=== PATIENT | male | born 1950 | race Caucasian/White ===

== ENCOUNTER 2021-03-30 03:30 | Inpatient (IN) | payer OTHER ==
[~2021-03-30] VITALS: Ht 175.3 cm; Wt 77.1 kg
[2021-03-30] MEDS ORDERED: TRICOR48 MG (03:43)
[2021-04-02] MEDS ORDERED: CIPRO500 MG PO (09:20)
[2021-04-02] MEDS ORDERED: FLAGYL500MG PO (09:20)
== END 2021-04-02 11:08 | disposition home or self-care (01) | DRG 392 ==
LOC: ER 03:30 → SURH 13:18
PROVIDERS: ADMIT Internal Medicine; ATTEND Internal Medicine
DX: K57.32 Diverticulitis of large intestine without perforation or abscess without bleeding (principal); E78.49 Other hyperlipidemia

== ENCOUNTER 2021-05-10 12:44 | Emergency (ER) | payer OTHER ==
[~2021-05-10] VITALS: Ht 175.3 cm; Wt 76.2 kg
[~2021-05-10 12:44] MED LIST: CIPRO500 MG PO; FLAGYL500MG PO; TRICOR48 MG
[2021-05-10] MEDS ORDERED: NORFLEX100MG PO (16:00)
[2021-05-10] MEDS ORDERED: KETO10TA2 PO (16:00)
== END 2021-05-10 16:09 | disposition home or self-care (01) ==
LOC: ER 12:44
DX: S16.1XXA Strain of muscle, fascia and tendon at neck level, initial encounter (principal); S00.03XA Contusion of scalp, initial encounter; M54.6 Pain in thoracic spine; M54.2 Cervicalgia; W10.8XXA Fall (on) (from) other stairs and steps, initial encounter; Y93.89 Activity, other specified; Y92.018 Other place in single-family (private) house as the place of occurrence of the external cause; Y99.8 Other external cause status

== ENCOUNTER 2024-08-29 05:34 | Emergency (ER) | payer OTHER ==
[~2024-08-29] VITALS: Ht 175.3 cm; Wt 86.2 kg
[~2024-08-29 05:34] MED LIST changes: +KETO10TA2 PO; +NORFLEX100MG PO
[2024-08-29] MEDS ORDERED: CRESTOR40 MG (05:47)
[2024-08-29] MEDS ORDERED: PANTOPRAZOLE SO40 MG (05:47)
[2024-08-29] MEDS ORDERED: 0.9 % SODIUM CHLORIDE 1,000 ML IV STA (07:56)
[2024-08-29] MEDS ORDERED: KETOROLAC TROMETHAMINE 30 MG VIAL IV STA (07:57)
[2024-08-29] MEDS ORDERED: MEPERIDINE HCL/PF 50 MG/ML VIAL IM STA (07:57)
[2024-08-29] MEDS ORDERED: PROMETHAZINE HCL 50 MG/ML AMPUL IM STA (07:58)
[2024-08-29] MEDS ORDERED: HYOSCYAMINE SULFATE 0.125 MG TAB.SUBL SL ONE (08:00)
[2024-08-29] MEDS ORDERED: KETOROLAC TROMETHAMINE 30 MG VIAL ONE (08:10)
[2024-08-29] MEDS ORDERED: PROMETHAZINE HCL 50 MG/ML AMPUL IM ONE (08:10)
[2024-08-29] MEDS ORDERED: HYOSCYAMINE SULFATE 0.125 MG TAB.SUBL ONE (08:11)
[2024-08-29 08:51] LABS: HEMATOCRIT 42.3 % (39.0-48.0); HEMOGLOBIN 13.9 g/dL (13-16.00); MEAN CELL VOLUME 92.7 fL (80.0-100.00); MEAN CORPUSCULAR HEMOGLOBIN 30.3 pg (27.00-32.0); MEAN CORPUSCULAR HGB CONC 32.7 g/dl (32.0-36.0); PLATELET COUNT 292 K/uL (150-450); RED BLOOD COUNT 4.57 M/uL (4.00-6.00); RED CELL DISTRIBUTION WIDTH 13.4 % (11.5-14.5)
[2024-08-29 09:05] LABS: INR 1.01; PARTIAL THROMBOPLASTIN TIME 28.7 SECONDS (22.0-34.0)
[2024-08-29 09:09] LABS: ALBUMIN 3.7 gm/dL (3.4-5.0); BILIRUBIN TOTAL 0.62 mg/dL (0.3-1.2); CALCIUM 8.6 mg/dL (8.5-10.1); CREATININE SERUM 1.13 mg/dL (0.70-1.30); GFR 63.61; POTASSIUM 3.48 mEq/L (3.5-5.1); TOTAL PROTEIN 7.7 gm/dL (6.4-8.2)
[2024-08-29] MEDS ORDERED: METRONIDAZOLE/SODIUM CHLORIDE 500 MG/100 ML PIGGYBACK IV ONE ×2 (12:45→12:56)
== END 2024-08-29 14:34 | disposition home or self-care (01) ==
LOC: ER 05:37
DX: K57.32 Diverticulitis of large intestine without perforation or abscess without bleeding (principal); K44.9 Diaphragmatic hernia without obstruction or gangrene; I70.8 Atherosclerosis of other arteries
CPT/HCPCS: 36415; 74176; 96365; 96366; 96372; 99283; J1885; J2250; J3490

== ENCOUNTER 2025-06-08 11:52 | Emergency (ER) | payer OTHER ==
[~2025-06-08] VITALS: Ht 175.3 cm; Wt 81.6 kg
[~2025-06-08 11:52] MED LIST changes: +CRESTOR40 MG; +PANTOPRAZOLE SO40 MG
[2025-06-08] MEDS ORDERED: ONDANSETRON HCL 2 MG/ML VIAL IV STA (13:17)
[2025-06-08] MEDS ORDERED: KETOROLAC TROMETHAMINE 30 MG VIAL IU STA (13:18)
[2025-06-08] MEDS ORDERED: FAMOTIDINE/PF 20 MG/2 ML VIAL IV STA (13:18)
[2025-06-08] MEDS ORDERED: 0.9 % SODIUM CHLORIDE 1,000 ML IV SCH (13:30)
[2025-06-08] MEDS ORDERED: FAMOTIDINE/PF 20 MG/2 ML VIAL ONE (15:36)
[2025-06-08] MEDS ORDERED: ONDANSETRON HCL 2 MG/ML VIAL ONE (15:36)
[2025-06-08] MEDS ORDERED: KETOROLAC TROMETHAMINE 30 MG VIAL ONE (15:36)
[2025-06-08 16:14] LABS: BASO % 0.3 % (0.1-1.2); EOS # 0.08 (0.04-0.54); EOS % 0.9 % (0.7-7.0); LYMPH # 2.99 (1.18-3.74); LYMPH % 34.1 % (19.3-53.1); MEAN PLATELET VOLUME 10.40 fl (9.4-12.4); MONO # 0.61 (0.24-0.82); MONO % 6.9 % (4.7-12.5); NEUT # 5.04 (1.56-6.13); NEUT % 57.5 % (34.0-71.1); RED CELL DISTRIBUTION WIDTH 13.5 % (11.6-14.4)
[2025-06-08 16:29] LABS: ERYTHROCYTE SEDIMENTATION RATE 15 mm/hr (0-20)
[2025-06-08 16:48] LABS: INR 1.0
[2025-06-08 16:55] LABS: ALT/SGPT 36.0 U/L (12-78); AST/SGOT 22.0 U/L (15-37); BILIRUBIN TOTAL 0.64 mg/dL (0.3-1.2); BUN CREA RATIO 11.0 (7.0-25.0); CREATININE SERUM 1.24 mg/dL (0.70-1.30); GFR 57.14; GLOBULINA 4.0 G/DL (2.4-3.5); GLUCOSE FASTING 94.0 mg/dL (65-100); OSMOLALITY SERUM 283.0 MOSM/KG (275-295)
[2025-06-08 17:07] LABS: URINE APPEARANCE Clear; URINE BILIRRUBIN Negative (NEGATIVE); URINE BLOOD Negative; URINE COLOR Yellow; URINE GLUCOSE Negative (NEGATIVE); URINE KETONE Negative (NEGATIVE); URINE LEUKOCYTE Negative; URINE NITRATE Negative; URINE PROTEIN Negative (NEGATIVE); URINE UROBILINOGEN 0.2 E.U./dl
[2025-06-08 17:09] LABS: URINE BACTERIA 5.9 uL (0.0-1933); URINE RBC 8.2 uL (0.0-20.8)
[2025-06-08 17:11] LABS: URINE CAST 0.00 uL (0.0-1.40); URINE EPITHELIAL CELLS 0.4 uL (0.0-38.8); URINE WBC 1.5 uL (0.0-23.2)
[2025-06-08] MEDS ORDERED: METRONIDAZOLE/SODIUM CHLORIDE 500 MG/100 ML PIGGYBACK IV STA (18:32)
[2025-06-08] MEDS ORDERED: CIPROFLOXACIN HCL 500 MG TABLET PO STA (18:32)
[2025-06-08] MEDS ORDERED: METRONIDAZOLE/SODIUM CHLORIDE 500 MG/100 ML PIGGYBACK IV ONE (18:54)
[2025-06-08] MEDS ORDERED: CIPROFLOXACIN IN 5 % DEXTROSE 400 MG/200 ML PIGGYBAG IV ONE (18:54)
[2025-06-08] MEDS ORDERED: CIPRO500 MG PO (19:28)
[2025-06-08] MEDS ORDERED: METRONIDAZOLE500 MG PO (19:28)
== END 2025-06-08 21:18 | disposition home or self-care (01) ==
LOC: ER 11:53
PROVIDERS: Physician Assistant Medical
DX: K57.32 Diverticulitis of large intestine without perforation or abscess without bleeding (principal)
CPT/HCPCS: 36415; 74177; 96365; 96366; 99283; J0744; J1885; J2405; J3490; J7030; Q9965